=== PATIENT | male | born 1985 | race Hispanic/Latino ===

== ENCOUNTER 2019-11-12 23:17 | Emergency (ER) | payer SELFPAY ==
--- NOTE | 2019-11-13 00:48 | EDM.PDOC ---
ED HPI GENERAL MEDICAL PROBLEM - General Chief Complaint: Back Pain or Injury Stated Complaint: BACK PAIN Time Seen by Provider: 11/13/19 00:38 - History of Present Illness INITIAL COMMENTS - FREE TEXT/NARRATIVE: 34-year-old male presents the emergency room with back pain. This started this evening is very severe he feels some sharp pain in his left lower back. He does not have any loss of bowel or bladder control. He has no shooting or electrical-like pain going down his leg. He has a little tightness in his buttocks. Patient cannot recall any specific injury. He was out mowing the lawn today and this did not have any significant effect on him but over time late this afternoon his back started getting worse. He does not have a significant history of prior back surgeries. And no recent trauma of any sort. Patient has some history with stomach trouble this has not bothered him in a while he is takes his omeprazole pretty regularly. Has no other significant medical problems. Lower Back Pain Score (Numeric/FACES): 3 - Related Data Allergies Allergy/AdvReac Type Severity Reaction Status Date / Time Penicillins Allergy Severe Rash Verified 11/12/19 23:39 Home Meds: Home Meds Omeprazole 20 mg PO DAILY 11/12/19 [History] Past Medical History Gastrointestinal History: Reports: GERD Social & Family History - Tobacco Use Smoking Status *Q: Current Every Day Smoker Years of Tobacco use: 4 Packs/Tins Daily: 0.1 - Caffeine Use Caffeine Use: Reports: None - Recreational Drug Use Recreational Drug Use: No ED ROS GENERAL - Review of Systems Review Of Systems: See Below Constitutional: Reports: No Symptoms Respiratory: Reports: No Symptoms Cardiovascular: Reports: No Symptoms GI/Abdominal: Reports: No Symptoms : Reports: No Symptoms Musculoskeletal: Reports: Back Pain Skin: Reports: No Symptoms Neurological: Reports: No Symptoms Psychiatric: Reports: No Symptoms ED EXAM,LOWER BACK PAIN/INJURY - Physical Exam Exam: See Below Exam Limited By: No Limitations General Appearance: Alert, Other (He is positioning himself to take the stretch out of his left back) Head: Atraumatic, Normocephalic Neck: Normal Inspection, Supple, Non-Tender, Full Range of Motion Respiratory/Chest: No Respiratory Distress, Lungs Clear, Normal Breath Sounds Cardiovascular: Regular Rate, Rhythm, No Edema, No Murmur GI/Abdominal: Normal Bowel Sounds, Soft, Non-Tender Back Exam: Normal Inspection, Full Range of Motion, Paraspinal Tenderness, Other (Patient has no bony tenderness with palpation is got significant muscle tightness in the left paraspinous musculature. This extends into his buttocks and into the proximal thigh posteriorly. Neurovascular status of the feet are normal). No: Vertebral Tenderness Extremities: Other (Straight leg raises are normal however this does cause significant muscle tightness in the left musculature around the buttocks and proximal posterior thigh) Course - Vital Signs Last Recorded V/S: Last Vital Signs Temp 37.3 C 11/12/19 23:36 Pulse 85 11/12/19 23:36 Resp 16 11/12/19 23:36 BP 124/69 11/12/19 23:36 Pulse Ox 96 11/12/19 23:36 - Orders/Labs/Meds Meds: Medications Discontinued Medications Generic Name Dose Route Start Last Admin Trade Name Freq PRN Reason Stop Dose Admin Cyclobenzaprine HCl 10 mg 11/13/19 00:50 11/13/19 00:58 Flexeril PO 11/13/19 00:51 10 mg ONETIME ONE Administration Ketorolac Tromethamine 30 mg 11/13/19 00:50 11/13/19 00:58 Toradol IM 11/13/19 00:51 30 mg ONETIME ONE Administration - Re-Assessments/Exams Free Text/Narrative Re-Assessment/Exam: 11/13/19 01:01 We will give the patient some Toradol and Flexeril see how he does anticipate discharging him with Naprosyn and Flexeril I am concerned about using nonsteroidals with his history of stomach problems but the patient assures me he takes the omeprazole on a regular basis and he could also add famotidine if needed the patient is willing to give this a try after discussing the risks and benefits. Departure - Departure Time of Disposition: 01:17 Disposition: Home, Self-Care 01 Clinical Impression: Acute lumbar myofascial strain - Discharge Information Referrals: PCP,None [Primary Care Provider] - Forms: ED Department Discharge Additional Instructions: Return to the emergency room with any questions problems or worsening symptoms. Take the Flexeril every 8 hours tomorrow and the next day. Then take 1 nightly thereafter until all gone. Allow 12 hours after using this medication before driving or returning to work. You were given 15 of the 10 mg tablets from the machine out in the waiting room. Tomorrow start taking [id number] naproxen, or Naprosyn to 220 mg tablets with breakfast and supper. Also take famotidine, or Pepcid 20 mg twice a day to ensure that your stomach does not get irritated from the naproxen. Follow-up in the hospital clinic in 1 week if not better. [phone] Sepsis Event Note - Evaluation Sepsis Screening Result: No Definite Risk - Focused Exam Vital Signs: Vital Signs Temp Pulse Resp BP Pulse Ox 11/12/19 23:36 37.3 C 85 16 124/69 96 Date Exam was Performed: 11/13/19 Time Exam was Performed: 01:12
[2019-11-13] MEDS ORDERED: Cyclobenzaprine 10 MG Tab PO ONE (00:50)
[2019-11-13] MEDS ORDERED: Ketorolac 30 MG/ML SDV IM ONE (00:50)
== END 2019-11-13 01:30 | disposition home or self-care (01) ==
LOC: JD.ED 23:17
DX: S39.012A Strain of muscle, fascia and tendon of lower back, initial encounter (principal); K21.9 Gastro-esophageal reflux disease without esophagitis; F17.210 Nicotine dependence, cigarettes, uncomplicated; Z88.0 Allergy status to penicillin; Z79.899 Other long term (current) drug therapy; X58.XXXA Exposure to other specified factors, initial encounter
CPT/HCPCS: 96372; 99283; A9270; J1885

== ENCOUNTER 2021-02-26 00:10 | Emergency (ER) | payer BC ==
--- NOTE | 2021-02-26 00:32 | EDM.PDOC ---
ED HPI GENERAL MEDICAL PROBLEM - General Chief Complaint: Fever Stated Complaint: FEVER/MIGRAINE Time Seen by Provider: 02/26/21 00:32 Source of Information: Reports: Patient History Limitations: Reports: No Limitations - History of Present Illness INITIAL COMMENTS - FREE TEXT/NARRATIVE: 35-year-old male of polyn[place] descent presents to the ED with chief complaint of generalized myalgia severe headache mild sore throat recurrent nausea and vomiting mild diarrhea and paroxysmal cough occasionally producing some yellowish tinged sputum. He states he used to smoke half a pack a day but quit since onset of this illness. He tested positive for COVID-19 within the last 24 hours. He had a friend that he spends a good deal of time with test positive last week. His symptoms began on February 22 in the evening. He is therefore currently on day 5 of illness. He came to the ED seeking help primarily for headache relief nausea and vomiting and fluid replacement. Onset: Sudden Onset Date: 02/22/21 (Developed symptoms of generalized myalgia headache on the evening of February 22) Duration: Day(s):, Getting Worse (Keep anything down with persistent severe headache made worse by coughing.) Location: Reports: Head (Constant severe pounding throbbing headache which she r ates 10-10), Chest (Mitten paroxysmal cough occasionally producing some yellow- tinged sputum), Generalized, Other (Neurolyse myalgia intractable nausea and vomiting mild and mild diarrhea) Quality: Reports: Ache Severity: Severe (Generalized body aches) Improves with: Reports: None Worsens with: Reports: Movement Context: Reports: Sick Contact. Denies: Activity, Exercise, Lifting, Trauma, Other (Friend) Associated Symptoms: Reports: Chest Pain, Cough (Occasional yellow-tinged sputum), cough w sputum, Fever/Chills, Headaches, Loss of Appetite, Malaise, Nausea/Vomiting, Shortness of Breath, Weakness, Other (Mild diarrhea of yellowish mucus). Denies: No Other Symptoms (Chest discomfort with coughing), Confusion, Diaphoresis, Rash, Seizure, Syncope Treatments DRUG SAFETY COORDINATOR: Reports: Acetaminophen - Related Data Allergies Allergy/AdvReac Type Severity Reaction Status Date / Time Penicillins Allergy Severe Rash Verified 02/26/21 00:26 Home Meds: Home Meds Omeprazole 20 mg PO DAILY 11/12/19 [History] Ondansetron [Zofran] 4 mg BUCCAL Q6H PRN #12 tab 02/26/21 [Rx] oxyCODONE HCl/Acetaminophen [Percocet 5-325 mg Tablet] 1 - 2 each PO Q4H PRN #16 tablet 02/26/21 [Rx] Past Medical History - Past Health History Medical/Surgical History: Denies Medical/Surgical History Gastrointestinal History: Reports: GERD Endocrine/Metabolic History: Reports: Obesity/BMI 30+ - Infectious Disease History Infectious Disease History: Reports: Novel Coronavirus Social & Family History - Tobacco Use Tobacco Use Status *Q: Current Some Day Tobacco User Years of Tobacco use: 1 Packs/Tins Daily: 0.5 - Caffeine Use Caffeine Use: Reports: None - Recreational Drug Use Recreational Drug Use: No - Living Situation & Occupation Living situation: Reports: Single Occupation: Unemployed ED ROS GENERAL - Review of Systems Review Of Systems: See Below Constitutional: Reports: Fever, Chills, Malaise, Weakness, Fatigue, Decreased Appetite, Weight Loss HEENT: Reports: Sinus Problem (Mild nasal congestion), Throat Pain (Mild) Respiratory: Reports: Shortness of Breath, Cough (For her paroxysmal cough), Sputum. Denies: Wheezing, Pleuritic Chest Pain Cardiovascular: Reports: Chest Pain (Occasional yellow sputum), Dyspnea on Exertion, Lightheadedness. Denies: Blood Pressure Problem ( central chest discomfort from coughing so much), Claudication, Edema (Headedness and weakness), Orthopnea Endocrine: Reports: Fatigue GI/Abdominal: Reports: Diarrhea, Nausea (Small quantity yellow diarrhea stools.), Vomiting (Intractable nausea and vomiting unable to keep down Motrin for headache) : Reports: Other (Urine is very dark in color) Musculoskeletal: Reports: Muscle Pain (Generalized myalgia particularly large muscles of neck low back thighs) Skin: Reports: No Symptoms Neurological: Reports: Dizziness, Headache Psychiatric: Reports: No Symptoms Hematologic/Lymphatic: Reports: No Symptoms Immunologic: Reports: No Symptoms ED EXAM, GENERAL - Physical Exam Exam: See Below Exam Limited By: No Limitations General Appearance: Alert, WD/WN, Moderate Distress, Other (Patient appears ill. He is very warm to palpation. Recorded temperature is 38.0 but he feels warmer than this. Resting heart rate at the bedside is 127 and sinus tachycardia on the monitor respiratory is 18 with O2 sats of 95 to 97% room air BP is 142/80) Eye Exam: Bilateral Eye: Normal Inspection (No blepharal pallor or scleral icterus), PERRL Ears: Normal TMs Throat/Mouth: Normal Inspection, Normal Lips, Normal Oropharynx, Other Head: Atraumatic (Tongue is mildly dry but not coated), Normocephalic Neck: Normal Inspection, Supple, Non-Tender, Full Range of Motion. No: Lymphadenopathy (L), Lymphadenopathy (R) Respiratory/Chest: No Respiratory Distress, Lungs Clear, Normal Breath Sounds, No Accessory Muscle Use. No: Crackles, Rales, Rhonchi Cardiovascular: Normal Peripheral Pulses, No Edema, No Gallop, No Murmur, Tachycardia (On his tachycardia at the bedside 127/min partly due to fever but also partly due to dehydration) Peripheral Pulses: 3+: Carotid (L), Carotid (R), Posterior Tibial (L), Posterior Tibial (R), Dorsalis Pedis (L), Dorsalis Pedis (R) GI/Abdominal: Normal Bowel Sounds, Soft, Non-Tender, No Organomegaly, No Mass, Pelvis Stable, Other (Mildly obese. No scars) Back Exam: Normal Inspection, Full Range of Motion. No: CVA Tenderness (L), CVA Tenderness (R) Extremities: Normal Inspection, Normal Range of Motion, Non-Tender, No Pedal Edema Neurological: Alert, Oriented, CN II-XII Intact, Normal Cognition Psychiatric: Normal Affect, Normal Mood Skin Exam: Warm, Dry, Intact, Normal Color, No Rash Course - Vital Signs Last Recorded V/S: Last Vital Signs Temp 38.0 C 02/26/21 01:26 Pulse 90 02/26/21 02:45 Resp 12 02/26/21 02:45 BP 128/66 02/26/21 02:45 Pulse Ox 94 L 02/26/21 02:45 - Orders/Labs/Meds Orders: Active Orders 24 hr Category Date Time Status Chest 1V Frontal [CR] Stat Exams 02/26/21 01:15 Taken Labs: Laboratory Tests 02/26/21 02/26/21 02/26/21 Range/Units 01:40 01:40 01:40 WBC 6.85 (4.23-9.07) K/mm3 RBC 5.10 (4.63-6.08) M/mm3 Hgb 13.2 L (13.7-17.5) gm/dl Hct 41.2 (40.1-51.0) % MCV 80.8 (79.0-92.2) fl MCH 25.9 (25.7-32.2) pg MCHC 32.0 L (32.2-35.5) g/dl RDW Std Deviation 46.9 H (35.1-43.9) fL Plt Count 254 (163-337) K/mm3 MPV 10.3 (9.4-12.3) fl Neut % (Auto) 75.9 H (34.0-67.9) % Lymph % (Auto) 14.0 L (21.8-53.1) % [place] % (Auto) 9.5 (5.3-12.2) % Eos % (Auto) 0.1 L (0.8-7.0) Baso % (Auto) 0.4 (0.1-1.2) % Neut # (Auto) 5.19 (1.78-5.38) K/mm3 Lymph # (Auto) 0.96 L (1.32-3.57) K/mm3 [place] # (Auto) 0.65 (0.30-0.82) K/mm3 Eos # (Auto) 0.01 L (0.04-0.54) K/mm3 Baso # (Auto) 0.03 (0.01-0.08) K/mm3 D-Dimer, Quantitative (0.19-0.50) mg/L Sodium 137 (136-145) mEq/L Potassium 4.4 (3.5-5.1) mEq/L Chloride 100 (98-107) mEq/L Carbon Dioxide 29 (21-32) mEq/L Anion Gap 12.4 (5-15) BUN 16 (7-18) mg/dL Creatinine 1.2 (0.7-1.3) mg/dL Est Cr Clr Drug Dosing 89.56 mL/min Estimated GFR (MDRD) > 60 (>60) mL/min BUN/Creatinine Ratio 13.3 L (14-18) Glucose 107 H (70-99) mg/dL Calcium 8.2 L (8.5-10.1) mg/dL Magnesium 1.8 (1.8-2.4) mg/dL Total Bilirubin 0.2 (0.2-1.0) mg/dL AST 21 (15-37) U/L ALT 42 (16-63) U/L Alkaline Phosphatase 80 (46-116) U/L Lactate Dehydrogenase 68 L (85-227) U/L Troponin I < 0.017 (0.00-0.056) ng/mL C-Reactive Protein (<1.0) mg/dL NT-Pro-B Natriuret Pep 2 (0-125) pg/mL Total Protein 8.4 H (6.4-8.2) g/dl Albumin 3.8 (3.4-5.0) g/dl Globulin 4.6 gm/dL Albumin/Globulin Ratio 0.8 L (1-2) 02/26/21 02/26/21 Range/Units 01:40 01:57 WBC (4.23-9.07) K/mm3 RBC (4.63-6.08) M/mm3 Hgb (13.7-17.5) gm/dl Hct (40.1-51.0) % MCV (79.0-92.2) fl MCH (25.7-32.2) pg MCHC (32.2-35.5) g/dl RDW Std Deviation (35.1-43.9) fL Plt Count (163-337) K/mm3 MPV (9.4-12.3) fl Neut % (Auto) (34.0-67.9) % Lymph % (Auto) (21.8-53.1) % [place] % (Auto) (5.3-12.2) % Eos % (Auto) (0.8-7.0) Baso % (Auto) (0.1-1.2) % Neut # (Auto) (1.78-5.38) K/mm3 Lymph # (Auto) (1.32-3.57) K/mm3 [place] # (Auto) (0.30-0.82) K/mm3 Eos # (Auto) (0.04-0.54) K/mm3 Baso # (Auto) (0.01-0.08) K/mm3 D-Dimer, Quantitative 0.24 (0.19-0.50) mg/L Sodium (136-145) mEq/L Potassium (3.5-5.1) mEq/L Chloride (98-107) mEq/L Carbon Dioxide (21-32) mEq/L Anion Gap (5-15) BUN (7-18) mg/dL Creatinine (0.7-1.3) mg/dL Est Cr Clr Drug Dosing mL/min Estimated GFR (MDRD) (>60) mL/min BUN/Creatinine Ratio (14-18) Glucose (70-99) mg/dL Calcium (8.5-10.1) mg/dL Magnesium (1.8-2.4) mg/dL Total Bilirubin (0.2-1.0) mg/dL AST (15-37) U/L ALT (16-63) U/L Alkaline Phosphatase (46-116) U/L Lactate Dehydrogenase (85-227) U/L Troponin I (0.00-0.056) ng/mL C-Reactive Protein 2.8 H* (<1.0) mg/dL NT-Pro-B Natriuret Pep (0-125) pg/mL Total Protein (6.4-8.2) g/dl Albumin (3.4-5.0) g/dl Globulin gm/dL Albumin/Globulin Ratio (1-2) Meds: Medications Discontinued Medications Generic Name Dose Route Start Last Admin Trade Name Freq PRN Reason Stop Dose Admin Acetaminophen 975 mg 02/26/21 01:16 02/26/21 01:26 Acetaminophen 325 Mg Tab PO 02/26/21 01:17 975 mg ONETIME ONE Administration Diphenhydramine HCl 50 mg 02/26/21 01:18 Diphenhydramine 50 Mg/Ml Sdv IVPUSH ONETIME PRN hypersensitivity reaction Epinephrine HCl 0.3 mg 02/26/21 01:18 Epinephrine 1 Mg/Ml Sdv IM ONETIME PRN hypersensitivity reaction Famotidine 20 mg 02/26/21 01:18 Famotidine 20 Mg/2 Ml Sdv IVPUSH ONETIME PRN hypersensitivity reaction Hydromorphone HCl 1 mg 02/26/21 01:17 02/26/21 01:37 Hydromorphone 1 Mg/Ml Syringe IVPUSH 02/26/21 01:18 1 mg ONETIME ONE Administration Dextrose/Sodium Chloride 1,000 mls @ 500 mls/hr 02/26/21 01:15 02/26/21 01:36 Dextrose 5%-Normal Saline IV 500 mls/hr ASDIRECTED JOANN Administration CASIRIVIMAB/IMDEVIMAB 10 ml/ 110 mls @ 220 mls/hr 02/26/21 01:18 02/26/21 02:03 Sodium Chloride IV 02/26/21 01:47 220 mls/hr ONETIME ONE Administration Ketorolac Tromethamine 30 mg 02/26/21 01:30 02/26/21 03:51 Ketorolac 30 Mg/Ml Sdv IVPUSH 30 mg ONETIME JOANN Administration Methylprednisolone Sodium Succinate 125 mg 02/26/21 01:18 Methylprednisolone Sodium Succinate 125 Mg/2 Ml Sdv IVPUSH ONETIME PRN hypersensitivity reaction Metoclopramide HCl 10 mg 02/26/21 01:17 02/26/21 01:36 Metoclopramide 10 Mg/2 Ml Sdv IVPUSH 02/26/21 01:18 10 mg ONETIME ONE Administration Ondansetron HCl 4 mg 02/26/21 03:36 Ondansetron 4 Mg Tab.Dis PO 02/26/21 03:37 ONETIME ONE Sodium Chloride 30 ml 02/26/21 01:30 Sodium Chloride 0.9% 10 Ml Syringe FLUSH ASDIRECTED JOANN - Radiology Interpretation Free Text/Narrative:: 35-year-old male of [place] descent presents to the ED with known positive COVID-19 test 24 hours ago. He has been ill since the evening of Tuesday, February 22. He had a friend who tested +4 days prior who he spends a good deal of time with. At present he has a severe headache generalized myalgia with paroxysmal cough producing some yellowish sputum. Unable to keep anything down due to nausea and vomiting even Gatorade or Powerade. Has small quantity yellow diarrhea stool. He came in due to generalized weakness and inability to keep anything down as well as severe headache which she rates 10 out of 10. He is markedly febrile on examination. - Re-Assessments/Exams Free Text/Narrative Re-Assessment/Exam: 02/26/21 01:27 patient has known COVID-19 positive diagnosed 24 hours ago. Has been symptomatic since late January 22 evening. At present he is got significant nausea and vomiting he has been unable to keep anything down including meds for headache and fever relief. He is coughing paroxysmal he with occasional yellowish sputum. Persistent fever chills mild diarrhea. Headache is severe 10 out of 10. His risk factors for illness are a BMI of 35.2. Otherwise he takes only medication for his stomach. We therefore did speak about Regen-Cov and I have given him the fact sheet to read about it. I offered him the fax sheet as indicated above that it is an experimental use authorization medication. Stated therapy has been approved by an emergency with laceration process and has not been fully FDA reviewed or approved. I shared the potential risks from the therapy including allergic reactions and potential anaphylaxis. I discussed that there are other potential treatment options that are currently not FDA approved to treat COVID-19 as well. I offered him the opportunity ask questions and all questions were answered. Mr. Wiley Evangelista voiced understanding and agreed to proceed with the treatment for himself. 02/26/21 03:32 Patient has completed his monoclonal antibody infusion without any difficulties. He has been monitored for an hour with no problems. He is looking and feeling better. He is afebrile at this time. I am going to send him home with Zofran 4 mg which he may take under his tongue every 4-6 hours necessary for relief of nausea or vomiting so that he can keep down fluids. You will need to take either Tylenol 650 mg every 4 hours or Motrin 600 mg every 6 hours to relieve headache and body ache. Departure - Departure Time of Disposition: 03:33 Disposition: Home, Self-Care 01 Condition: Fair Clinical Impression: COVID-19 determined by clinical diagnostic criteria - Discharge Information *PRESCRIPTION DRUG MONITORING PROGRAM REVIEWED*: Not Applicable *COPY OF PRESCRIPTION DRUG MONITORING REPORT IN PATIENT LAYLA: Not Applicable Prescriptions: oxyCODONE HCl/Acetaminophen [Percocet 5-325 mg Tablet] 1 - 2 each PO Q4H PRN #16 tablet PRN Reason: pain relief. Ondansetron [Zofran] 4 mg BUCCAL Q6H PRN #12 tab PRN Reason: nausea or vomiting Instructions: COVID-19 Frequently Asked Questions, Prone Position Therapy, Things to Know about the COVID-19 Pandemic - CDC (09/03/2020), What You Should Know About COVID-19 to Protect Yourself and Others - CDC, COVID-19: Quarantine vs. Isolation - CDC (06/05/2020) Referrals: PCP,None [Primary Care Provider] - Forms: ED Department Discharge Additional Instructions: Evaluation in the emergency room tonight in regards to illness secondary to COVID-19 virus. You have developed a high fever associate with severe headache and generalized body aches in all of your large muscle groups neck low back thighs etc. Associated nausea and vomiting with inability keep down any fluids or food or medication. Mild associated diarrhea. Chest x-ray reveals the beginnings I believe a very early viral pneumonia in both lower lobes of your lungs. Your oxygen levels stayed around 96% while in the emergency department. You were treated with intravenous fluids to provide rehydration and medication Reglan 10 mg IV with Toradol 30 mg IV for nausea and pain relief. Also Dilaudid 1 mg IV for headache and body ache relief. Suggest using Motrin 600 mg every 6 hours to relieve body aches and headache over the next few days. Suggest use of Zofran 4 mg under your tongue every 4-6 hours as necessary to relieve nausea or vomiting so that you can keep down fluids particularly fluids such as Gatorade or Powerade as they are very similar to the contents of intravenous fluids. You would need to return to emergency room if you are unable to keep down anything over the next 24 hours. You did receive monoclonal antibody infusion which we are calling Regen-Cov while in the emergency room. The idea behind this is to give you 2 antibodies to fight off COVID-19 virus infection immediately and improve your symptoms and hopefully prevent need for hospitalization or worsening disease. Usually the disease process is worse from day 8-11 from the time of onset. I would suggest not returning to work for between 12 and 14 days from the time of onset of illness. I have also sent a prescription to the pharmacy for Percocet 5/325 mg strength tablets which can be taken 1 or 2 every 4-6 hours for relief of bad headache, body ache and cough relief. These should be taken with little bit of food or fluid in your stomach however as they can make you nauseated empty stomach. Sepsis Event Note (ED) - Evaluation Sepsis Screening Result: Possible Sepsis Risk - Focused Exam Vital Signs: Vital Signs Temp Temp Pulse Resp BP Pulse Ox 02/26/21 02:45 90 12 128/66 94 L 02/26/21 01:26 38.0 C 02/26/21 00:20 38.0 C 127 H 18 142/80 H 95 - My Orders Last 24 Hours: My Active Orders 02/26/21 01:15 Chest 1V Frontal [CR] Stat - Assessment/Plan Last 24 Hours: My Active Orders 02/26/21 01:15 Chest 1V Frontal [CR] Stat
[2021-02-26] MEDS ORDERED: Dextrose 5%-0.9% NaCl 1,000 ML IV SCH (01:15)
[2021-02-26] MEDS ORDERED: Acetaminophen 325 MG Tab PO ONE (01:16)
[2021-02-26] MEDS ORDERED: HYDROmorphone 1 MG/ML Syringe IVPUSH ONE (01:17)
[2021-02-26] MEDS ORDERED: Metoclopramide 10 MG/2 ML SDV IVPUSH ONE (01:17)
[2021-02-26] MEDS ORDERED: diphenhydrAMINE 50 MG/ML SDV IVPUSH PRN (01:18)
[2021-02-26] MEDS ORDERED: methylPREDNISolone Sodium Succinate 125 MG/2 ML SDV IVPUSH PRN (01:18)
[2021-02-26] MEDS ORDERED: EPINEPHrine 1 MG/ML SDV IM PRN (01:18)
[2021-02-26] MEDS ORDERED: Famotidine 20 MG/2 ML SDV IVPUSH PRN (01:18)
[2021-02-26] MEDS ORDERED: Ketorolac 30 MG/ML SDV IVPUSH SCH (01:30)
[2021-02-26] MEDS ORDERED: Sodium Chloride 0.9% 10 ML Syringe FLUSH SCH (01:30)
[2021-02-26] MEDS ORDERED: Ondansetron 4 MG Tab.DIS PO ONE (03:36)
--- NOTE | 2021-02-26 07:34 | CR ---
Chest: Frontal view of the chest was obtained. Comparison: No prior chest imaging is available. Heart size and mediastinum are normal. Lungs are clear with no acute parenchymal change. Bony structures showed nothing acute. Impression: 1. Nothing acute is seen on frontal chest x-ray. Diagnostic code #1
== END 2021-02-26 04:01 | disposition home or self-care (01) ==
LOC: JD.ED 00:10
DX: U07.1 COVID-19 (principal); K21.9 Gastro-esophageal reflux disease without esophagitis; E66.9 Obesity, unspecified; Z68.35 Body mass index [BMI] 35.0-35.9, adult; Z72.0 Tobacco use; Z88.0 Allergy status to penicillin; Z79.899 Other long term (current) drug therapy
CPT/HCPCS: 36415; 71045; 80053; 83615; 83735; 83880; 84484; 85025; 85379; 86140; 96374; 96375; 99284; A9270; J1170; J1885; J2765; J7042; M0243; Q0243

== ENCOUNTER 2022-02-20 22:27 | Emergency (ER) | payer BC | END 2022-02-21 02:00 | LOC: JD.ED 22:27 | DX: Z53.21 Procedure and treatment not carried out due to patient leaving prior to being seen by health care provider (principal) ==

== ENCOUNTER 2022-03-04 19:13 | Emergency (ER) | payer BC ==
[2022-03-04] MEDS ORDERED: Sodium Chloride 0.9% 10 ML Syringe FLUSH PRN (19:33)
[2022-03-04] MEDS ORDERED: Metoclopramide 10 MG/2 ML SDV IVPUSH ONE (19:33)
[2022-03-04] MEDS ORDERED: HYDROmorphone 1 MG/ML Syringe IVPUSH ONE (19:36)
[2022-03-04] MEDS ORDERED: Sodium Chloride 0.9% 1,000 ML IV SCH (19:45)
== END 2022-03-04 21:42 | disposition home or self-care (01) ==
LOC: JD.ED 19:13
DX: S06.9X9A Unspecified intracranial injury with loss of consciousness of unspecified duration, initial encounter (principal); R07.89 Other chest pain; R55 Syncope and collapse; K21.9 Gastro-esophageal reflux disease without esophagitis; F17.210 Nicotine dependence, cigarettes, uncomplicated; E66.9 Obesity, unspecified; Z68.37 Body mass index [BMI] 37.0-37.9, adult; Z88.0 Allergy status to penicillin; Z79.899 Other long term (current) drug therapy; Z86.16 Personal history of COVID-19; W18.09XA Striking against other object with subsequent fall, initial encounter
CPT/HCPCS: 36415; 70450; 71045; 80053; 84484; 85025; 85379; 93005; 93225; 93226; 96361; 96374; 96375; 99285; J1170; J2765; J3490; J7030; 93010; 99283